=== PATIENT | male | born 1990 | race African-American/Black ===

== ENCOUNTER 2017-05-27 16:19 | Emergency (ER) | payer MEDICAID ==
[~2017-05-27] VITALS: Ht 177.8 cm; Wt 85.0 kg
[2017-05-27 16:20] VITALS: BP 146/82
== END 2017-05-27 22:30 | disposition left against medical advice (07) ==
LOC: ER 16:30
DX: R05 Cough (principal); R09.89 Other specified symptoms and signs involving the circulatory and respiratory systems; R50.9 Fever, unspecified; Z53.21 Procedure and treatment not carried out due to patient leaving prior to being seen by health care provider

== ENCOUNTER 2019-01-16 14:39 | Emergency (ER) | payer MEDICAID, OTHER ==
[~2019-01-16] VITALS: Ht 177.8 cm; Wt 90.0 kg
[2019-01-16 14:48] VITALS: BP 135/76
== END 2019-01-16 19:44 | disposition left against medical advice (07) ==
LOC: ER 14:39
DX: Z53.21 Procedure and treatment not carried out due to patient leaving prior to being seen by health care provider (principal)